=== PATIENT | female | born 1990 | race Caucasian/White ===

== ENCOUNTER 2020-11-03 15:18 | Emergency (ER) | payer OTHER ==
[2020-11-03] MEDS ORDERED: NA CHLORIDE 0.9% 1,000 ML ONE (16:58)
[2020-11-03] MEDS ORDERED: NA CHLORIDE 0.9% 100 ML ONE (16:58)
[2020-11-03] MEDS ORDERED: MORPHINE 4 MG/ML SYR ONE ×2 (16:58→18:10)
[2020-11-03] MEDS ORDERED: FAMOTIDINE 20 MG/2 ML VIAL IV ONE (16:58)
[2020-11-03] MEDS ORDERED: ONDANSETRON 4 MG/2 ML VIAL ONE (16:58)
[2020-11-03 16:59] LABS: Absolute Lymphocytes (CBC) 0.8 K/uL (0.7-4.9); Basophils % 0.2 % (0-1.3); Hematocrit 41.6 % (36.0-45.0); Lymphocytes % 7.1 % (15.3-44.8); MPV 8.6 fL (7.6-11.3); RBC Red Blood Cell Count 4.81 M/uL (3.86-4.86)
[2020-11-03 17:29] LABS: Albumin 4.1 g/dL (3.4-5.0); Bilirubin Direct 1.1 mg/dL (0-0.2); Potassium 3.4 mmol/L (3.5-5.1); Protein, Total 8.3 g/dL (6.4-8.2)
--- NOTE | 2020-11-03 18:00 | ER ---
Nurse's Notes [facility] Name: Kayla Gordon Age: 30 yrs Sex: Female : 1990 Arrival Date: 11/03/2020 Time: 15:20 Bed 15 Private MD: Diagnosis: Biliary acute pancreatitis;Other cholelithiasis with obstruction Presentation: 11/03 15:40 Chief complaint: Patient states: she has been throwing up off and on since around ap3 midnight this morning. patient was seen at [place] and was dx with gallstones. Patients spouse states the symptoms have not improved. Coronavirus screen: At this time, the client does not indicate any symptoms associated with coronavirus-19. Ebola Screen: No symptoms or risks identified at this time. Initial Sepsis Screen: Does the patient meet any 2 criteria? No. Patient's initial sepsis screen is negative. Does the patient have a suspected source of infection? No. Patient's initial sepsis screen is negative. Risk Assessment: Do you want to hurt yourself or someone else? Patient reports no desire to harm self or others. Onset of symptoms was November 03, 2020. 15:40 Method Of Arrival: Ambulatory ap3 15:40 Acuity: STEFF 3 ap3 Triage Assessment: 15:43 General: Appears uncomfortable, Behavior is restless. Pain: Complains of pain in ap3 epigastric area, right upper quadrant and left upper quadrant Pain currently is 10 out of 10 on a pain scale. Neuro: Level of Consciousness is awake, alert, obeys commands, Oriented to person, place, time, situation, Appropriate for age Speech is normal. Respiratory: Airway is patent Respiratory effort is even, unlabored, Respiratory pattern is regular, symmetrical. GI: Reports upper abdominal pain, nausea, vomiting, since midnight. 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 - Social history:: Smoking status: Patient denies any tobacco usage or history of. Patient/guardian denies using alcohol, street drugs. Screenin:44 Abuse screen: Denies threats or abuse. Nutritional screening: No deficits noted. ap3 Tuberculosis screening: No symptoms or risk factors identified. 22:00 Fall Risk None identified. sj1 Assessment: 19:19 General: Reports gallbladder inflammation, surgery to be schedule, however pt reports oh an increase in pain. Pain: Complains of pain in abdomen and left upper quadrant and right upper quadrant and epigastric area. 19:20 Reassessment: pt off the floor to CT. oh 21:41 Reassessment: Attempted to give report - no answer. sj1 22:00 Reassessment: Unable to give report to receiving facility. Transport arrived. All sj1 belongings sent with patient. AOX4. ABCs intact. VSS. NS infusing during transfer. Vital Signs: 15:40 BP 130 / 75; Pulse 64; Resp 21; Temp 97.9; Pulse Ox 100% on R/A; Weight 81.65 kg; ap3 Height 5 ft. 7 in. (170.18 cm); Pain 10/10; 21:57 BP 115 / 69; Pulse 90; Resp 18; Temp 98.3; Pulse Ox 100% ; Pain 0/10; sj1 15:40 Body Mass Index 28.19 (81.65 kg, 170.18 cm) ap3 ED Course: 15:20 Patient arrived in ED. mr 15:42 Triage completed. ap3 15:45 Arm band placed on left wrist. ap3 15:58 Maksim Borjas PA is PHCP. cp 15:58 Lazaro Goldman MD is Attending Physician. cp 16:11 Delma Bartlett, ANAMIKA is Primary Nurse. oh 18:04 initiated transfer to [facility]. mt 18:37 Blood Culture Adult (2) Sent. oh 18:37 Procalcitonin Sent. oh 18:37 Lactate Sent. oh 18:45 connected Zhang ABERNATHY with the Doctor from [facility] Transfer [place]. mw2 19:13 CT Abd/Pelvis - IV Contrast Only In Process Unspecified. EDMS 19:19 Blood Culture Adult (2) Sent. oh 19:19 Procalcitonin Sent. oh 19:30 Patient has correct armband on for positive identification. Bed in low position. Call sj1 light in reach. Side rails up X 1. 20:01 administrative approval given by Anne-Marie Olvera/ patient has been accepted to [facility] bed 2442/ Dr. Gamble accepted the patient in transfer/report to be called to [phone]. 20:13 Urine Microscopic Only Sent. sj1 20:18 waiting on patients covid result before transfer. 2 22:00 No provider procedures requiring assistance completed. Patient transferred, IV remains sj1 in place. intact, No redness/swelling at site. Administered Medications: 16:52 Drug: morphine 4 mg Route: IVP; Site: right antecubital; oh 16:53 Drug: Zofran (Ondansetron) 4 mg Route: IVP; Site: right antecubital; oh 16:53 Drug: Pepcid (famotidine) 20 mg Route: IVP; Site: right antecubital; oh 16:53 Drug: NS 0.9% 1000 ml Route: IV; Rate: 1 bolus; Site: right antecubital; oh 17:43 Drug: Potassium Chloride 10 mEq Route: IV; Rate: calculated rate; Site: right oh antecubital; 21:36 Follow up: Response: No adverse reaction; IV Status: Completed infusion sj1 17:56 Drug: morphine 4 mg Route: IVP; Site: right antecubital; oh 19:44 Drug: NS 0.9% 1000 ml Route: IV; Rate: 1 bolus; Site: left antecubital; sj1 21:35 Follow up: Response: No adverse reaction; IV Intake: 1000ml sj1 19:44 Drug: NS 0.9% 1000 ml Route: IV; Rate: 125 ml/hr; Site: left antecubital; sj1 21:58 Follow up: IV Status: Infusion continued upon transfer sj1 21:00 Drug: Rocephin (cefTRIAXone) 1 grams Route: IV; Rate: calculated rate; Site: left sj1 antecubital; 21:36 Follow up: Response: No adverse reaction 1 Intake: 21:35 IV: 1000ml; Total: 1000ml. 1 Outcome: 18:00 ER care complete, transfer ordered by MD. santoyo 21:58 Patient left the ED. sj1 22:00 Transferred by ground EMS to [facility], Transfer form completed. X-rays 1 sent w/ patient. 22:00 Condition: stable 22:00 Instructed on the need for transfer. Signatures: Dispatcher [employer] EDMS Myranda Sofia mr Maksim Borjas PA PA cp Thompson, Moriah mt Prokisch, Amanda, RN RN ap3 Javier Moya mw2 Gwendolyn Guerrero RN RN sj1 Delma Bartlett RN RN oh Corrections: (The following items were deleted from the chart) 20:15 20:13 CORONAVIRUS+MR.LAB.BRZ drawn and sent. sj1 MICA
--- NOTE | 2020-11-03 18:01 | EDPHYS ---
Physician Documentation [facility] Name: Kayla Gordon Age: 30 yrs Sex: Female : 1990 Arrival Date: 11/03/2020 Time: 15:20 Bed 15 Private MD: ED Physician Lazaro Goldman HPI: 11/03 16:20 This 30 yrs old Female presents to ER via Ambulatory with complaints of cp Gallstone Pain. 16:20 The patient presents with abdominal pain in the upper abdomen. cp 16:20 The symptoms radiate to back. Associated signs and symptoms: Pertinent positives: cp nausea and vomiting. Patient reports history of gallstones and has appt next month with surgeon. Reports increasing abdominal pain and being seen at [place] this morning. Had blood work, US and CT of chest done. Discharged to home from [place] this morning, but pain worse and now persistent nausea and vomiting. 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 - Social history:: Smoking status: Patient denies any tobacco usage or history of. Patient/guardian denies using alcohol, street drugs. ROS: 16:30 Constitutional: Positive for poor PO intake, Negative for body aches, chills, fever. cp 16:30 Eyes: Negative for injury, pain, redness, and discharge. cp 16:30 ENT: Negative for ear pain, sore throat, difficulty swallowing, difficulty handling secretions. 16:30 Cardiovascular: Negative for chest pain, palpitations. 16:30 Respiratory: Negative for cough, shortness of breath, wheezing. 16:30 Abdomen/GI: Positive for abdominal pain, nausea and vomiting, anorexia, Negative for diarrhea, constipation, dysphagia, hematemesis, black/tarry stool, rectal bleeding. 16:30 Back: Positive for radiated pain, of the mid back area. 16:30 : Negative for urinary symptoms. 16:30 Neuro: Negative for altered mental status, headache, weakness. 16:30 All other systems are negative. Exam: 16:33 Constitutional: The patient appears in no acute distress, alert, awake, cp non-diaphoretic, non-toxic, well developed, well nourished, uncomfortable. 16:33 Head/Face: Normocephalic, atraumatic. cp 16:33 Eyes: Periorbital structures: appear normal, Conjunctiva: normal, no exudate, no injection, Sclera: no appreciated abnormality, Lids and lashes: appear normal, bilaterally. 16:33 ENT: External ear(s): are unremarkable, Nose: is normal, Mouth: Lips: moist, Oral mucosa: pink and intact, moist, Posterior pharynx: Airway: no evidence of obstruction, patent. 16:33 Chest/axilla: Inspection: normal, Palpation: is normal, no crepitus, no tenderness. 16:33 Cardiovascular: Rate: normal, Rhythm: regular. 16:33 Respiratory: the patient does not display signs of respiratory distress, Respirations: normal, no use of accessory muscles, no retractions, labored breathing, is not present, Breath sounds: are clear throughout, no decreased breath sounds, no stridor, no wheezing. 16:33 Abdomen/GI: Inspection: abdomen appears normal, Bowel sounds: active, all quadrants, Palpation: soft, in all quadrants, severe abdominal tenderness, in the epigastric area and right upper quadrant, rebound tenderness, is not appreciated, voluntary guarding, is elicited in the epigastric area and right upper quadrant. 16:33 Back: pain, that is moderate, of the mid back area, ROM is normal. 16:33 Neuro: Orientation: to person, place \T\ time. Mentation: is normal, Motor: moves all fours, strength is normal. Vital Signs: 15:40 BP 130 / 75; Pulse 64; Resp 21; Temp 97.9; Pulse Ox 100% on R/A; Weight 81.65 kg; ap3 Height 5 ft. 7 in. (170.18 cm); Pain 10/10; 21:57 BP 115 / 69; Pulse 90; Resp 18; Temp 98.3; Pulse Ox 100% ; Pain 0/10; sj1 15:40 Body Mass Index 28.19 (81.65 kg, 170.18 cm) ap3 MDM: 16:12 Patient medically screened. cp 17:00 Differential diagnosis: UTI, sepsis, choledocholithiasis, pancreatitis, cholecystitis. 17:40 Data reviewed: vital signs, nurses notes, lab test result(s), I have discussed the patient's presentation/case with the attending Emergency Department Physician; and as a result, I will transfer patient due to no GI services available. 18:28 Physician consultation: Consult with Dr. Baldwin who is a service bar cashier at [facility] in the [facility], request CT of the abdomen and pelvis to be performed and will consult on the patient requests transfer to hospitalist services. 18:54 Physician consultation: Performed with Dr. Gamble, hospitalist, she will accept patient to medical bed for continued care. 11/03 16:16 Order name: Basic Metabolic Panel; Complete Time: 17:31 11/03 17:31 Interpretation: Normal except: K 3.4; CL 112; GLUC 122; GFR 76. 11/03 16:16 Order name: CBC with Diff; Complete Time: 17:31 11/03 17:31 Interpretation: Normal except: JONA% 86.6; LYM% 7.1; NEUT A 9.5. 11/03 16:16 Order name: Hepatic Function; Complete Time: 17:31 11/03 17:32 Interpretation: Normal except: AST 135; ALT 153; ALK 145; BILIT 2.0; BILID 1.1; TP 8.3; cp GLOB 4.2; A/G 1.0. 11/03 16:16 Order name: Lipase; Complete Time: 17:31 11/03 17:32 Interpretation: Abnormal: LIP 53332. 11/03 17:46 Order name: Lactate; Complete Time: 19:33 11/03 17:46 Order name: Procalcitonin; Complete Time: 22:41 11/03 17:46 Order name: Blood Culture Adult (2) 11/03 18:26 Order name: CT Abd/Pelvis - IV Contrast Only; Complete Time: 19:33 11/03 19:44 Order name: Urine Dipstick-Ancillary; Complete Time: 22:41 [facility] 11/03 21:06 Order name: SARS-COV-2 RT PCR; Complete Time: 22:41 [facility] 11/03 16:16 Order name: IV Saline Lock; Complete Time: 16:53 cp 11/03 16:16 Order name: Labs collected and sent; Complete Time: 16:53 cp 11/03 16:16 Order name: NPO; Complete Time: 16:53 cp 11/03 17:46 Order name: Urine Dipstick-Ancillary (obtain specimen); Complete Time: 19:48 cp 11/03 17:46 Order name: Urine Test (obtain specimen); Complete Time: 19:48 cp Administered Medications: 16:52 Drug: morphine 4 mg Route: IVP; Site: right antecubital; oh 16:53 Drug: Zofran (Ondansetron) 4 mg Route: IVP; Site: right antecubital; oh 16:53 Drug: Pepcid (famotidine) 20 mg Route: IVP; Site: right antecubital; oh 16:53 Drug: NS 0.9% 1000 ml Route: IV; Rate: 1 bolus; Site: right antecubital; oh 17:43 Drug: Potassium Chloride 10 mEq Route: IV; Rate: calculated rate; Site: right oh antecubital; 21:36 Follow up: Response: No adverse reaction; IV Status: Completed infusion 1 17:56 Drug: morphine 4 mg Route: IVP; Site: right antecubital; oh 19:44 Drug: NS 0.9% 1000 ml Route: IV; Rate: 1 bolus; Site: left antecubital; sj1 21:35 Follow up: Response: No adverse reaction; IV Intake: 1000ml 1 19:44 Drug: NS 0.9% 1000 ml Route: IV; Rate: 125 ml/hr; Site: left antecubital; sj1 21:58 Follow up: IV Status: Infusion continued upon transfer 1 21:00 Drug: Rocephin (cefTRIAXone) 1 grams Route: IV; Rate: calculated rate; Site: left rust antecubital; 21:36 Follow up: Response: No adverse reaction rust Disposition: 11/04 17:01 Co-signature as Attending Physician, Lazaro Goldman MD I agree with the assessment and kdr plan of care. Disposition Summary: 11/03/20 18:00 Transfer Ordered Transfer Location: [facility] cp Reason: Higher level of care cp Condition: Stable cp Problem: new cp Symptoms: have improved cp Accepting Physician: DR Anita Gamble(11/03/20 21:58) sj1 Diagnosis - Biliary acute pancreatitis cp - Other cholelithiasis with obstruction cp Forms: - Medication Reconciliation Form cp - SBAR form cp Signatures: Dispatcher [employer] EDMS Lazaro Goldman MD MD kdr Page, Corey, PA PA cp Suyapa Maki RN RN ap3 Gwendolyn Guerrero RN RN sj1 Delma Bartlett RN RN oh Corrections: (The following items were deleted from the chart) 11/03 18:57 18:00 Doctor [facility] 20:15 18:54 CORONAVIRUS+MR.LAB.BRZ ordered. EDKS EDMS 21:58 18:57 DR Anita Gamble cp sj1
[2020-11-03] MEDS ORDERED: KCL 20 MEQ/100 mL IVPB 20 MEQ/100 ML BAG IV ONE (18:06)
[2020-11-03] MEDS ORDERED: NA CHLORIDE 0.9% 250 ML ONE (18:37)
--- NOTE | 2020-11-03 19:21 | RAD REPORT ---
EXAM DESCRIPTION: CTAbdomen Pelvis W Contrast - 11/03/2020 7:13 pm CLINICAL HISTORY: . ABD PAIN COMPARISON: No comparisons TECHNIQUE: Biphasic CT imaging of the abdomen and pelvis was performed with 100 ml non-ionic IV cont rast. All CT scans are performed using dose optimization technique as appropriate and may include automated exposure control or mA/KV adjustment according to patient size. FINDINGS: Lower chest: No acute abnormality. Liver: No acute abnormality or suspicious lesions. Biliary: Distended gallbladder with cholelithiasis noted. Filling defect in the distal common bile du ct concerning for choledocholithiasis. Common bile duct measures 10 millimeters. Stomach: No significant focal abnormality. Duodenum: No significant focal abnormality. Pancreas: Diffuse peripancreatic edema and peripancreatic fluid. Spleen: No significant abnormality. Adrenal: No suspicious lesions. Kidney/ureter: No hydronephrosis. No renal calculi. Retroperitoneum: No retroperitoneal adenopathy. Vascular: No aneurysm. Bowel: No significant focal abnormality. Peritoneum: No ascites or free air. Bladder: Grossly unremarkable. Reproductive: No adnexal masses. IUD. Bones: No acute fracture. Other: n/a IMPRESSION: Findings concerning for gallstone pancreatitis. Cholelithiasis noted. Filling defect in the distal common bile duct concerning for choledocholithiasis. No loculated fluid collections.
[2020-11-03 19:44] LABS: Urine Blood 2+ (Negative); Urine Glucose Negative (Negative); Urine Protein Negative (Negative); Urine pH 6.5 (5.0-7.0)
[2020-11-03] MEDS ORDERED: NA CHLORIDE 0.9% 2,000 ML ONE (19:49)
[2020-11-03] MEDS ORDERED: CEFTRIAXONE 1000 MG/VIAL ONE (21:10)
[2020-11-03 22:11] VITALS: O2SAT 100
[2020-11-03 22:12] VITALS: BP 115/69; TEMP 98.3
== END 2020-11-03 21:58 | disposition short-term general hospital (02) ==
LOC: ER 15:18
DX: K80.81 Other cholelithiasis with obstruction (principal); K85.10 Biliary acute pancreatitis without necrosis or infection; Z20.822 Contact with and (suspected) exposure to COVID-19
CPT/HCPCS: 87040 ×2; 85025; 80048; 36415; 80076; 83605; 81003; 83690; 84145; 74177; 99285; U0003; Q9967; J3480; J7050; J7030 ×2; J2405